=== PATIENT | female | born 1960 | race Caucasian/White ===

== ENCOUNTER 2019-04-06 10:55 | Outpatient (RCR) | payer OTHER, SELFPAY ==
[2019-04-06 11:12] LABS: Basophils Percent Auto 0.2 % (0.2-1.2); Eosinophils Absolute Auto 0.1 K/mm3 (0-0.3); Hematocrit 44.6 % (37.0-47.0); Hemoglobin 14.5 g/dL (12.0-15.0); Immature Granulocyte Absolute 0.01 K/mm3 (0.00-0.031); Immature Granulocyte Percent A 0.2 % (0-0.5); Lymphocytes Absolute Auto 1.73 K/mm3 (0.9-3.2); Lymphocytes Percent Auto 42.2 % (18.3-44.2); Mean Corpuscular HGB Conc 32.5 g/dl (32-36); Mean Corpuscular Hemoglobin 30.7 pg (26-34); Mean Corpuscular Volume 94.5 fl (80-100); Mean Platelet Volume 9.1 fl (7.4-10.4); Monocytes Absolute Auto 0.4 K/mm3 (0.1-0.6); Monocytes Percent Auto 9.5 % (2.6-8.5); Neutrophils Absolute Auto 1.9 K/mm3 (1.3-6.7); Neutrophils Percent Auto 45.9 % (45.5-73.1); Platelet Count Result 246 k/mm3 (150-375); Red Blood Count 4.72 M/mm3 (4.2-5.4); Red Cell Distribution Width 12.7 % (11.5-14.5); White Blood Count 4.1 K/mm3 (4.5-10.0)
[2019-04-06 11:16] LABS: Blood Urea Nitrogen 9 mg/dL (8-26); Carbon Dioxide 29 mmol/L (17-26); Chloride 100 mmol/L (98-109); Estimated Glomerular Filt Rate > 60; Glucose 87 mg/dL (70-105); Potassium 4.6 mmol/L (3.5-4.9); Sodium 142 mmol/L (138-146)
[2019-04-06 12:33] LABS: Alanine Aminotransferase 19 U/L (4-35); Albumin Level 4.5 g/dL (3.5-5.1); Alkaline Phosphatase 101 U/L (38-126); Aspartate Amino Transferase 22 U/L (14-36); Bilirubin,Total 0.3 mg/dL (0.2-1.3); Blood Urea Nitrogen 11 mg/dL (7-17); Calcium 10.4 mg/dL (8.4-10.2); Carbon Dioxide 31 mmol/L (22-30); Chloride 100 mmol/L (98-107); Estimated Glomerular Filt Rate > 60; Glucose 89 mg/dL (65-105); Potassium 4.6 mmol/L (3.4-5.0); Sodium 140 mmol/L (137-145)
== END 2019-07-05 23:59 | disposition home or self-care (01) ==
LOC: ANHLAB 10:55
PROVIDERS: PCP Internal Medicine; Visit Provider Internal Medicine Hematology & Oncology
DX: D05.12 Intraductal carcinoma in situ of left breast (principal)
CPT/HCPCS: 36415; 80048; 80053; 85025

== ENCOUNTER 2019-07-28 09:11 | Outpatient (CLI) | payer OTHER, SELFPAY ==
--- NOTE | ~2019-07-28 | MM_ITS ---
EXAMINATION: MM screening xiao BI w kar HISTORY: Screening mammogram TECHNIQUE: Bilateral rotated lateral CC views. Craniocaudal and mediolateral oblique 3-D tomosynthes is images were obtained and synthetic 2-D images were generated. CAD analysis was submitted and inter preted. COMPARISON: 01/26/2019 diagnostic left digital mammogram 07/21/2018 bilateral digital screening mammogram 10/17/2017 mammographic localization 09/15/2017 left stereotactic biopsy 09/07/2017 diagnostic left digital mammogram 09/03/2017, 08/21/2016, 08/23/2015 bilateral digital screening mammogram examinations BREAST PARENCHYMAL COMPOSITION: There are scattered areas of fibroglandular density. FINDINGS: There are several apparent new microcalcifications in the medial aspect of the mid depth le ft medial breast on CC projection. Diagnostic left mammogram is recommended. Otherwise there is no evidence of suspicious mass, calcification, or architectural distortion to sug gest malignancy in either breast. There has been no other suspicious interval change. IMPRESSION: 1. Possible new microcalcifications in the medial left breast; diagnostic left mammogram is recommend ed. We understand that she 2. Recommend diagnostic left mammogram. BI-RADS Category 0: Incomplete: Needs additional imaging evaluation. Reviewed, dictated and finalized at location A. IMPRESSION: 1. Possible new microcalcifications in the medial left breast; diagnostic left mammogram is recommended. We understand that she 2. Recommend diagnostic left mammogram. BI-RADS Category 0: Incomplete: Needs additional imaging evaluation.
== END 2019-07-28 09:12 | disposition home or self-care (01) ==
PROVIDERS: PCP Internal Medicine; Visit Provider Internal Medicine Hematology & Oncology
DX: Z12.31 Encounter for screening mammogram for malignant neoplasm of breast (principal); R92.8 Other abnormal and inconclusive findings on diagnostic imaging of breast
CPT/HCPCS: 77063; 77067

== ENCOUNTER 2019-08-14 11:04 | Outpatient (CLI) | payer OTHER, SELFPAY ==
--- NOTE | ~2019-08-14 | MM_ITS ---
EXAMINATION: MM diagnostic mammo unilat LT HISTORY: Possible new microcalcifications in the medial left breast reported on 07/28/2019 bilateral d igital screening mammogram TECHNIQUE: Additional 3-D ML tomosynthesis images of left breast were performed and synthetic 2-D suze ges were generated. Magnification CC view of left breast CAD analysis was submitted and interpreted. COMPARISON: 07/28/2019bilateral digital screening mammogram FINDINGS: Minimal benign calcification is noted. No malignant features are identified. IMPRESSION: 1. Benign calcifications 2. Routine mammographic screening is recommended. BI-RADS Category 2: Benign finding(s). Reviewed, dictated and finalized at location A.
== END 2019-08-14 11:05 | disposition home or self-care (01) ==
PROVIDERS: PCP Internal Medicine; Visit Provider Internal Medicine Hematology & Oncology
DX: D05.12 Intraductal carcinoma in situ of left breast (principal)
CPT/HCPCS: 77065

== ENCOUNTER 2019-08-17 09:33 | Outpatient (CLI) | payer OTHER, SELFPAY ==
[2019-08-17 09:52] LABS: Basophils Percent Auto 0.6 % (0.2-1.2); Eosinophils Absolute Auto 0.1 K/mm3 (0-0.3); Eosinophils Percent Auto 1.9 % (0-4.4); Hematocrit 44.8 % (37.0-47.0); Hemoglobin 14.7 g/dL (12.0-15.0); Lymphocytes Absolute Auto 1.38 K/mm3 (0.9-3.2); Lymphocytes Percent Auto 38.3 % (18.3-44.2); Mean Corpuscular HGB Conc 32.8 g/dl (32-36); Mean Corpuscular Hemoglobin 31.3 pg (26-34); Mean Corpuscular Volume 95.5 fl (80-100); Mean Platelet Volume 9.1 fl (7.4-10.4); Monocytes Absolute Auto 0.3 K/mm3 (0.1-0.6); Monocytes Percent Auto 8.9 % (2.6-8.5); Neutrophils Absolute Auto 1.8 K/mm3 (1.3-6.7); Neutrophils Percent Auto 50.3 % (45.5-73.1); Platelet Count Result 245 k/mm3 (150-375); Red Blood Count 4.69 M/mm3 (4.2-5.4); Red Cell Distribution Width 12.9 % (11.5-14.5); White Blood Count 3.6 K/mm3 (4.5-10.0)
[2019-08-17 09:57] LABS: Blood Urea Nitrogen 10 mg/dL (8-26); Carbon Dioxide 23 mmol/L (22-30); Chloride 103 mmol/L (98-109); Estimated Glomerular Filt Rate > 60; Glucose 101 mg/dL (70-105); Potassium 4.3 mmol/L (3.5-4.9); Sodium 140 mmol/L (138-146)
[2019-08-17 10:41] LABS: Alanine Aminotransferase 17 U/L (4-35); Albumin Level 4.4 g/dL (3.5-5.1); Alkaline Phosphatase 105 U/L (38-126); Aspartate Amino Transferase 20 U/L (14-36); Bilirubin,Total 0.6 mg/dL (0.2-1.3); Blood Urea Nitrogen 11 mg/dL (7-17); Calcium 9.8 mg/dL (8.4-10.2); Carbon Dioxide 23 mmol/L (22-30); Chloride 104 mmol/L (98-107); Estimated Glomerular Filt Rate > 60; Glucose 98 mg/dL (65-105); Potassium 4.7 mmol/L (3.4-5.0); Sodium 138 mmol/L (137-145)
== END 2019-08-17 09:34 | disposition home or self-care (01) ==
LOC: ANHLAB 09:34
PROVIDERS: PCP Internal Medicine; Visit Provider Internal Medicine Hematology & Oncology
DX: D05.12 Intraductal carcinoma in situ of left breast (principal)
CPT/HCPCS: 36415; 80048; 80053; 85025

== ENCOUNTER 2020-02-18 10:39 | Outpatient (CLI) | payer OTHER, SELFPAY ==
[2020-02-18 11:19] LABS: Basophils Percent Auto 0.5 % (0.2-1.2); Eosinophils Absolute Auto 0.1 K/mm3 (0-0.3); Eosinophils Percent Auto 1.2 % (0-4.4); Hematocrit 44.7 % (37.0-47.0); Hemoglobin 14.8 g/dL (12.0-15.0); Immature Granulocyte Absolute 0.02 K/mm3 (0.00-0.031); Immature Granulocyte Percent A 0.5 % (0-0.5); Lymphocytes Absolute Auto 1.66 K/mm3 (0.9-3.2); Lymphocytes Percent Auto 39.4 % (18.3-44.2); Mean Corpuscular HGB Conc 33.1 g/dl (32-36); Mean Corpuscular Hemoglobin 30.5 pg (26-34); Mean Corpuscular Volume 92.2 fl (80-100); Mean Platelet Volume 8.6 fl (7.4-10.4); Monocytes Absolute Auto 0.4 K/mm3 (0.1-0.6); Monocytes Percent Auto 9.3 % (2.6-8.5); Neutrophils Absolute Auto 2.1 K/mm3 (1.3-6.7); Neutrophils Percent Auto 49.1 % (45.5-73.1); Platelet Count Result 269 k/mm3 (150-375); Red Blood Count 4.85 M/mm3 (4.2-5.4); Red Cell Distribution Width 13.2 % (11.5-14.5); White Blood Count 4.2 K/mm3 (4.5-10.0)
[2020-02-18 11:24] LABS: Blood Urea Nitrogen 13 mg/dL (8-26); Carbon Dioxide 23 mmol/L (22-30); Chloride 102 mmol/L (98-109); Estimated Glomerular Filt Rate > 60; Glucose 115 mg/dL (70-105); Sodium 140 mmol/L (138-146)
[2020-02-18 13:02] LABS: Alanine Aminotransferase 18 U/L (4-35); Albumin Level 4.3 g/dL (3.5-5.1); Alkaline Phosphatase 106 U/L (38-126); Anion Gap 9 mmol/L (8-16); Aspartate Amino Transferase 20 U/L (14-36); Bilirubin,Total 0.5 mg/dL (0.2-1.3); Blood Urea Nitrogen 14 mg/dL (7-17); Calcium 10.2 mg/dL (8.4-10.2); Carbon Dioxide 27 mmol/L (22-30); Chloride 101 mmol/L (98-107); Estimated Glomerular Filt Rate > 60; Glucose 122 mg/dL (65-105); Potassium 4.3 mmol/L (3.4-5.0); Sodium 137 mmol/L (137-145)
== END 2020-02-18 10:40 | disposition home or self-care (01) ==
PROVIDERS: PCP Internal Medicine; Visit Provider Internal Medicine Hematology & Oncology
DX: D05.12 Intraductal carcinoma in situ of left breast (principal)
CPT/HCPCS: 36415; 80048; 80053; 85025

== ENCOUNTER 2020-08-11 08:14 | Outpatient (CLI) | payer OTHER, SELFPAY ==
--- NOTE | ~2020-08-11 | MM_ITS ---
EXAMINATION: MM screening xiao BI w kar HISTORY: Screening mammogram TECHNIQUE: Craniocaudal and mediolateral oblique 3-D tomosynthesis images were obtained and synthetic 2-D images were generated. CAD analysis was submitted and interpreted. COMPARISON: 08/14/2019 diagnostic left digital mammogram 07/28/2019 bilateral digital screening mammogram 01/26/2019 diagnostic left digital mammogram 07/21/2018 bilateral diagnostic digital mammogram BREAST PARENCHYMAL COMPOSITION: There are scattered areas of fibroglandular density. FINDINGS: Surgical clips and biopsy marker are noted on the left. History of prior left partial maste ctomy for breast cancer in 2018. There is no evidence of suspicious mass, calcification, or cloud architect ural distortion to suggest malignancy in either breast. There has been no suspicious interval change. IMPRESSION: 1. No mammographic evidence of malignancy. 2. Recommend routine screening mammography in one year. BI-RADS Category 2: Benign finding(s). Reviewed, dictated and finalized at location A.
== END 2020-08-11 08:15 | disposition home or self-care (01) ==
LOC: ANHIMG 08:17
PROVIDERS: PCP Internal Medicine; Visit Provider Internal Medicine Hematology & Oncology
DX: Z12.31 Encounter for screening mammogram for malignant neoplasm of breast (principal)
CPT/HCPCS: 77063; 77067

== ENCOUNTER 2020-08-14 12:37 | Outpatient (CLI) | payer OTHER, SELFPAY ==
[2020-08-14 13:11] LABS: Basophils Percent Auto 0.4 % (0.2-1.2); Eosinophils Absolute Auto 0.1 K/mm3 (0-0.3); Eosinophils Percent Auto 1.8 % (0-4.4); Hematocrit 44.5 % (37.0-47.0); Hemoglobin 14.5 g/dL (12.0-15.0); Immature Granulocyte Absolute 0.01 K/mm3 (0.00-0.031); Immature Granulocyte Percent A 0.2 % (0-0.5); Lymphocytes Percent Auto 39.1 % (18.3-44.2); Mean Corpuscular HGB Conc 32.6 g/dl (32-36); Mean Corpuscular Hemoglobin 30.5 pg (26-34); Mean Corpuscular Volume 93.5 fl (80-100); Mean Platelet Volume 8.9 fl (7.4-10.4); Monocytes Absolute Auto 0.5 K/mm3 (0.1-0.6); Monocytes Percent Auto 8.8 % (2.6-8.5); Neutrophils Absolute Auto 2.5 K/mm3 (1.3-6.7); Neutrophils Percent Auto 49.7 % (45.5-73.1); Platelet Count Result 230 k/mm3 (150-375); Red Blood Count 4.76 M/mm3 (4.2-5.4); Red Cell Distribution Width 13.1 % (11.5-14.5); White Blood Count 5.1 K/mm3 (4.5-10.0)
[2020-08-14 13:15] LABS: Blood Urea Nitrogen 14 mg/dL (8-26); Carbon Dioxide 29 mmol/L (22-30); Chloride 101 mmol/L (98-109); Estimated Glomerular Filt Rate > 60; Glucose 87 mg/dL (70-105); Potassium 4.5 mmol/L (3.5-4.9); Sodium 138 mmol/L (138-146)
[2020-08-14 14:42] LABS: Alanine Aminotransferase 20 U/L (4-35); Albumin Level 4.6 g/dL (3.5-5.1); Alkaline Phosphatase 121 U/L (38-126); Anion Gap 9 mmol/L (8-16); Aspartate Amino Transferase 26 U/L (14-36); Bilirubin,Total 0.4 mg/dL (0.2-1.3); Blood Urea Nitrogen 15 mg/dL (7-17); Calcium 9.7 mg/dL (8.4-10.2); Carbon Dioxide 28 mmol/L (22-30); Chloride 102 mmol/L (98-107); Estimated Glomerular Filt Rate > 60; Glucose 91 mg/dL (65-105); Sodium 139 mmol/L (137-145)
[2020-08-14 14:56] LABS: Potassium 4.5 mmol/L (3.4-5.0)
== END 2020-08-14 12:38 | disposition home or self-care (01) ==
PROVIDERS: PCP Internal Medicine; Visit Provider Internal Medicine Hematology & Oncology
DX: D05.12 Intraductal carcinoma in situ of left breast (principal)
CPT/HCPCS: 36415; 80048; 80053; 85025

== ENCOUNTER 2020-08-18 08:17 | Outpatient (CLI) | payer OTHER, SELFPAY | END 2020-08-18 08:18 | disposition home or self-care (01) | LOC: ANHCOVIDVC 08:17 | PROVIDERS: PCP Internal Medicine | DX: Z23 Encounter for immunization (principal) | CPT/HCPCS: 0001A; 91300 ==

== ENCOUNTER 2020-09-08 08:16 | Outpatient (CLI) | payer OTHER, SELFPAY | END 2020-09-08 08:17 | disposition home or self-care (01) | LOC: ANHCOVIDVC 08:16 | PROVIDERS: PCP Internal Medicine | DX: Z23 Encounter for immunization (principal) | CPT/HCPCS: 0002A; 91300 ==

== ENCOUNTER → 2021-01-03 07:47 | Outpatient (CLI) | payer OTHER, SELFPAY ==
[2021-01-03 22:46] LABS: SARS-CoV-2 RNA PCR Negative
== END ==
PROVIDERS: PCP Internal Medicine; Visit Provider Internal Medicine
DX: Z20.822 Contact with and (suspected) exposure to COVID-19 (principal)
CPT/HCPCS: C9803; U0003; U0005

== ENCOUNTER 2021-02-20 09:18 | Outpatient (CLI) | payer OTHER, SELFPAY ==
[2021-02-20 09:36] LABS: Basophils Percent Auto 0.7 % (0.2-1.2); Eosinophils Absolute Auto 0.1 K/mm3 (0-0.3); Eosinophils Percent Auto 1.6 % (0-4.4); Hematocrit 45.3 % (37.0-47.0); Hemoglobin 14.6 g/dL (12.0-15.0); Immature Granulocyte Absolute 0.01 K/mm3 (0.00-0.031); Immature Granulocyte Percent A 0.2 % (0-0.5); Lymphocytes Absolute Auto 1.58 K/mm3 (0.9-3.2); Lymphocytes Percent Auto 37.2 % (18.3-44.2); Mean Corpuscular HGB Conc 32.2 g/dl (32-36); Mean Corpuscular Hemoglobin 30.9 pg (26-34); Mean Corpuscular Volume 95.8 fl (80-100); Mean Platelet Volume 8.9 fl (7.4-10.4); Monocytes Absolute Auto 0.4 K/mm3 (0.1-0.6); Monocytes Percent Auto 10.1 % (2.6-8.5); Neutrophils Absolute Auto 2.1 K/mm3 (1.3-6.7); Neutrophils Percent Auto 50.2 % (45.5-73.1); Platelet Count Result 274 k/mm3 (150-375); Red Blood Count 4.73 M/mm3 (4.2-5.4); Red Cell Distribution Width 12.8 % (11.5-14.5); White Blood Count 4.3 K/mm3 (4.5-10.0)
[2021-02-20 09:40] LABS: Blood Urea Nitrogen 14 mg/dL (8-26); Carbon Dioxide 28 mmol/L (22-30); Chloride 99 mmol/L (98-109); Estimated Glomerular Filt Rate > 60; Glucose 98 mg/dL (70-105); Potassium 4.3 mmol/L (3.5-4.9); Sodium 142 mmol/L (138-146)
[2021-02-20 12:49] LABS: D Dimer 0.44 ug/mL (<0.48)
[2021-02-20 13:04] LABS: Alanine Aminotransferase 24 U/L (4-35); Albumin Level 4.8 g/dL (3.5-5.1); Alkaline Phosphatase 113 U/L (38-126); Anion Gap 10 mmol/L (8-16); Aspartate Amino Transferase 44 U/L (14-36); Bilirubin,Total 0.5 mg/dL (0.2-1.3); Blood Urea Nitrogen 15 mg/dL (7-17); Calcium 10.2 mg/dL (8.4-10.2); Carbon Dioxide 29 mmol/L (22-30); Chloride 102 mmol/L (98-107); Estimated Glomerular Filt Rate > 60; Glucose 96 mg/dL (65-110); Potassium 4.5 mmol/L (3.4-5.0); Sodium 141 mmol/L (137-145)
== END 2021-02-20 09:19 | disposition home or self-care (01) ==
PROVIDERS: PCP Internal Medicine; Visit Provider Internal Medicine Hematology & Oncology
DX: D05.12 Intraductal carcinoma in situ of left breast (principal)
CPT/HCPCS: 36415; 80048; 80053; 85025; 85380

== ENCOUNTER 2021-08-22 07:13 | Outpatient (CLI) | payer OTHER, SELFPAY ==
--- NOTE | ~2021-08-22 | MM_ITS ---
EXAMINATION: MM screening xiao BI w kar HISTORY: Screening mammogram TECHNIQUE: Craniocaudal and mediolateral oblique 3-D tomosynthesis images were obtained and synthetic 2-D images were generated. CAD analysis was submitted and interpreted. COMPARISON: No prior mammogram is available for comparison at this institution. BREAST PARENCHYMAL COMPOSITION: There are scattered areas of fibroglandular density. FINDINGS: History of left partial mastectomy and radiotherapy for breast cancer. Surgical clips and s ome adjacent calcification of fat necrosis is noted very posteriorly in the inner aspect of the inner mid left breast. There is a biopsy marker on the left. There is no evidence of suspicious mass, calcification, or architectural distortion to suggest malign rafita in either breast. There has been no suspicious interval change. IMPRESSION: 1. Status post left partial mastectomy for breast cancer. No mammographic evidence of malignancy. 2. Recommend routine screening mammography in one year. BI-RADS Category 2: Benign finding(s). Reviewed, dictated and finalized at location A. IMPRESSION: 1. Status post left partial mastectomy for breast cancer. No mammographic evide nce of malignancy. 2. Recommend routine screening mammography in one year. BI-RADS Category 2: Benign finding(s).
== END 2021-08-22 07:14 | disposition home or self-care (01) ==
LOC: ANHIMG 07:14
PROVIDERS: PCP Internal Medicine; Visit Provider Internal Medicine Hematology & Oncology
DX: Z12.31 Encounter for screening mammogram for malignant neoplasm of breast (principal)
CPT/HCPCS: 77063; 77067

== ENCOUNTER 2021-08-28 08:42 | Outpatient (CLI) | payer OTHER, SELFPAY ==
[2021-08-28 08:55] LABS: Basophils Percent Auto 0.5 % (0.2-1.2); Eosinophils Absolute Auto 0.1 K/mm3 (0-0.3); Eosinophils Percent Auto 1.2 % (0-4.4); Hematocrit 46.3 % (37.0-47.0); Hemoglobin 14.4 g/dL (12.0-15.0); Immature Granulocyte Absolute 0.01 K/mm3 (0.00-0.031); Immature Granulocyte Percent A 0.2 % (0-0.5); Lymphocytes Absolute Auto 1.82 K/mm3 (0.9-3.2); Lymphocytes Percent Auto 44.8 % (18.3-44.2); Mean Corpuscular HGB Conc 31.1 g/dl (32-36); Mean Corpuscular Hemoglobin 31.2 pg (26-34); Mean Corpuscular Volume 100.2 fl (80-100); Mean Platelet Volume 9.1 fl (7.4-10.4); Monocytes Absolute Auto 0.4 K/mm3 (0.1-0.6); Monocytes Percent Auto 8.9 % (2.6-8.5); Neutrophils Absolute Auto 1.8 K/mm3 (1.3-6.7); Neutrophils Percent Auto 44.4 % (45.5-73.1); Platelet Count Result 231 k/mm3 (150-375); Red Blood Count 4.62 M/mm3 (4.2-5.4); White Blood Count 4.1 K/mm3 (4.5-10.0)
[2021-08-28 09:00] LABS: Blood Urea Nitrogen 14 mg/dL (8-26); Carbon Dioxide 28 mmol/L (22-30); Chloride 103 mmol/L (98-109); Estimated Glomerular Filt Rate > 60; Glucose 93 mg/dL (70-105); Ionized Calcium (POC) 1.25 mmol/L (1.11-1.31); Potassium 4.1 mmol/L (3.5-4.9); Sodium 142 mmol/L (138-146)
[2021-08-28 10:13] LABS: Alanine Aminotransferase 19 U/L (4-35); Albumin Level 4.3 g/dL (3.5-5.1); Alkaline Phosphatase 109 U/L (38-126); Anion Gap 9 mmol/L (8-16); Aspartate Amino Transferase 24 U/L (14-36); Bilirubin,Total 0.3 mg/dL (0.2-1.3); Blood Urea Nitrogen 13 mg/dL (7-17); Calcium 9.1 mg/dL (8.4-10.2); Carbon Dioxide 28 mmol/L (22-30); Chloride 103 mmol/L (98-107); Estimated Glomerular Filt Rate > 60; Glucose 91 mg/dL (65-110); Sodium 140 mmol/L (137-145)
[2021-08-28 10:15] LABS: D Dimer < 0.27 ug/mL (<0.48)
== END 2021-08-28 08:43 | disposition home or self-care (01) ==
LOC: ANHLAB 08:43
PROVIDERS: PCP Internal Medicine; Visit Provider Internal Medicine Hematology & Oncology
DX: R06.00 Dyspnea, unspecified (principal); D05.12 Intraductal carcinoma in situ of left breast
CPT/HCPCS: 36415; 80047; 80053; 85025; 85380

== ENCOUNTER 2021-11-11 02:07 | Day surgery (SDC) | payer OTHER, SELFPAY ==
[2021-10-26 14:43] VITALS: BMI 27.9
--- NOTE | 2021-11-10 14:49 | PM.HPGS ---
History of Present Illness History of Present Illness Consent: Risks, benefits, and alternatives have been discussed and questions answered. Patient agrees to proceed with procedure. Chief complaint: hx of colon polyps Narrative: Debra Vora is a 61 year old female who is referred for colon cancer screening. She has a history of polyps. Her last colonoscopy in 2017 was negative for polyps. Review of Systems Review of Systems: All systems reviewed & are unremarkable except as noted in HPI and below PMFSH Past Medical History Medical History Depression Screening for colon cancer Screening for osteoporosis Surgical History Surgical History History of section History of dilation and curettage History of endometrial ablation History of partial mastectomy Family History Family History Mother Family history of malignant neoplasm of ovary Father Family history of coronary artery disease Sibling Family history of coronary artery disease Family history of congestive heart failure Patient's sister is Family history of hypercholesterolemia Hypertension Grandparent Diabetes mellitus Cerebrovascular accident Other Family history of lung cancer Social History Social History Smoking status: Never smoker Second hand tobacco smoke exposure: No Alcohol intake: current Alcohol use details: socially Substance use: never Substance use type: does not use Living arrangements: alone Spiritual care concerns: No Meds Home Medications and Allergies Home Medications Medication Instructions Recorded Confirmed Type aspirin 81 mg tablet,delayed 81 mg PO DAILY 07/04/19 11/11/21 History release (Adult Aspirin Regimen) anastrozole 1 mg tablet See Rx Instructions .Route 09/29/20 11/11/21 Rx .COMPLEX #90 tabs alprazolam 0.25 mg tablet (Xanax) 0.25 mg PO DAILY PRN anxiety #30 05/27/21 11/11/21 Rx tabs divalproex 500 mg tablet,extended See Rx Instructions .Route 08/19/21 11/11/21 Rx release 24 hr .COMPLEX #90 tabs sumatriptan succinate 100 mg tablet See Rx Instructions .Route 08/19/21 11/11/21 Rx .COMPLEX #9 tabs atorvastatin 20 mg tablet See Rx Instructions .Route 09/28/21 11/11/21 Rx .COMPLEX #90 tabs imipramine HCl 50 mg tablet See Rx Instructions .Route 09/28/21 11/11/21 Rx .COMPLEX #30 tabs Allergies Allergy/AdvReac Type Severity Reaction Status Date / Time prochlorperazine Allergy Severe Lock Jaw Verified 11/11/21 08:20 Benzodiazepines Allergy Unknown rash Verified 11/11/21 08:20 lidocaine Allergy Unknown rash Verified 11/11/21 08:20 meperidine Allergy Unknown Rash Verified 11/11/21 08:20 vancomycin Allergy Unknown Rash Verified 11/11/21 08:20 Exam Resp: Auscultation: clear to auscultation bilaterally Cardio: Rate: regular rate Rhythm: regular rhythm GI: GI Palp: Yes Soft to palpation and No Tenderness to palpation present (GI) Assessment and Plan Assessment and plan (1) Screening for colon cancer: Code(s): Z12.11 - Encounter for screening for malignant neoplasm of colon Status: Acute Assessment and Plan: Colonoscopy with possible biopsy or polypectomy or cautery or injection of substances.
[2021-11-11 08:22] VITALS: BP 145/85; PULSE 103; RESP 20; TEMP 36.3; O2SAT 97
[2021-11-11] MEDS: LACTATED RINGERS 1,000 ML 150 ML IV CONT (08:29)
--- NOTE | 2021-11-11 09:04 | WPDANESEPPF ---
Anes - Initial Pre Proc Eval Procedure: Operation Date: 11/11/21 09:45 Proposed Procedures p Screening Colonoscopy - Sonido Arellano MD Date/Time: 11/11/21 09:04 Surgeon: Sonido Arellano MD Pre Op Diagnosis: hx of colon polyps Patient Data Age: 61 Gender: F Height: 1.7 m Weight: 78.9 kg Last Vital Signs Temp 36.3 C L 11/11/21 08:22 Pulse 103 H 11/11/21 08:22 Resp 20 11/11/21 08:22 BP 145/85 H 11/11/21 08:22 Pulse Ox 97 11/11/21 08:22 O2 Del Method Room Air 11/11/21 08:22 Allergies Allergy/AdvReac Type Severity Reaction Status Date / Time prochlorperazine Allergy Severe Lock Jaw Verified 11/11/21 08:20 Benzodiazepines Allergy Unknown rash Verified 11/11/21 08:20 lidocaine Allergy Unknown rash Verified 11/11/21 08:20 meperidine Allergy Unknown Rash Verified 11/11/21 08:20 vancomycin Allergy Unknown Rash Verified 11/11/21 08:20 Home Medications Medication Instructions Recorded Confirmed Type aspirin 81 mg tablet,delayed 81 mg PO DAILY 07/04/19 11/11/21 History release (Adult Aspirin Regimen) anastrozole 1 mg tablet See Rx Instructions .Route 09/29/20 11/11/21 Rx .COMPLEX #90 tabs alprazolam 0.25 mg tablet (Xanax) 0.25 mg PO DAILY PRN anxiety #30 05/27/21 11/11/21 Rx tabs divalproex 500 mg tablet,extended See Rx Instructions .Route 08/19/21 11/11/21 Rx release 24 hr .COMPLEX #90 tabs sumatriptan succinate 100 mg tablet See Rx Instructions .Route 08/19/21 11/11/21 Rx .COMPLEX #9 tabs atorvastatin 20 mg tablet See Rx Instructions .Route 09/28/21 11/11/21 Rx .COMPLEX #90 tabs imipramine HCl 50 mg tablet See Rx Instructions .Route 09/28/21 11/11/21 Rx .COMPLEX #30 tabs Patient hx anesthesia problems: post op nausea/vomiting Family hx anesthesia problems: none Results Review: All pre-operative results and documents have been reviewed as part of the pre-operative evaluation. [facility] Past Medical History Medical History Depression Pure hypercholesterolemia Screening for colon cancer Screening for osteoporosis Surgical History Surgical History History of section History of dilation and curettage History of endometrial ablation History of partial mastectomy Family History Family History Mother Family history of malignant neoplasm of ovary Father Family history of coronary artery disease Sibling Family history of coronary artery disease Family history of congestive heart failure Patient's sister is Family history of hypercholesterolemia Hypertension Grandparent Diabetes mellitus Cerebrovascular accident Other Family history of lung cancer Social History Social History Smoking status: Never smoker Second hand tobacco smoke exposure: No Alcohol intake: current Alcohol use details: socially Substance use: never Substance use type: does not use Living arrangements: alone Spiritual care concerns: No Anes - Eval Final PreProcedure Day of Procedure 11/11/21 09:04 Patient weight: overweight Heart: regular rate and rhythm Lungs: clear to auscultation Airway: Mallampati scale class II Neurological: alert and oriented Last oral intake: >/= 8 hours ASA classification: II Emergent: no Anesthetic plan: proceed Anesthesia type and monitoring: general GIVS and standard monitoring Results Review: All pre-operative results and documents have been reviewed as part of the pre-operative evaluation. Informed Consent: The patient's anesthetic plan and its attendant risks and benefits were discussed with the patient/family/POA. Questions were solicited and answers provided to the satisfaction of the patient/family/POA.
[2021-11-11 09:59] VITALS: BP 119/70; PULSE 90; RESP 20; O2SAT 98
[2021-11-11 10:09] VITALS: BP 122/73; PULSE 85; RESP 18; O2SAT 100
[2021-11-11 10:19] VITALS: BP 124/53; PULSE 87; RESP 20; O2SAT 100
== END 2021-11-11 10:30 | disposition home or self-care (01) ==
PROVIDERS: PCP Internal Medicine; Visit Provider Internal Medicine Gastroenterology
PROC: 0DJD8ZZ Inspection of Lower Intestinal Tract, Via Natural or Artificial Opening Endoscopic (ICD-10-PCS; CPT 45378; principal; 2021-11-11 09:45)
DX: Z12.11 Encounter for screening for malignant neoplasm of colon (principal); K63.5 Polyp of colon; Z79.82 Long term (current) use of aspirin; F32.A Depression, unspecified; E78.00 Pure hypercholesterolemia, unspecified
CPT/HCPCS: 45385; 88305; J2704; J7120

== ENCOUNTER 2022-01-23 08:54 | Outpatient (CLI) | payer OTHER, SELFPAY ==
--- NOTE | ~2022-01-23 | DEXA_ITS ---
Bone Density Report Name: MICHELLE MORRISON Age: 61 Sex: Female Ethnicity: White Date of : 1960 Indication: postmenopausal; screening for osteoporosis; cancer; Referring Provider: LYNDA MILLER Study: Bone densitometry was performed. Exam Date: January 23, 2022 Accession number: [id number] Bone Density: Region BMD T-score Z-score Classification AP Spine(L1-L4) 1.083 0.3 2.0 Normal Femoral Neck (Left) 0.877 0.3 1.7 Normal Total Hip (Left) 0.982 0.3 1.5 Normal Femoral Neck (Right) 0.981 1.2 2.6 Normal Total Hip (Right) 0.986 0.4 1.5 Normal Total Hip Mean 0.984 0.4 1.5 Normal World Health Organization criteria for BMD impression classify patients as: Normal (T-score at or above -1.0), Osteopenia (T-score between -1.0 and -2.5), or Osteoporosis (T-score at or below -2.5). 10-year Fracture Risk: FRAX not reported because: All T-scores for Spine Total, Hip Total, Femoral Neck at or above -1.0 Previous Exams: Region Exam Age BMD T-score BMD Change BMD Change Date g/cm2 vs Baseline vs Previous AP Spine (L1-L4) 01/23/2022 61 1.083 0.3 -0.110 (-9.2%) -0.110 (-9.2%) 08/12/2012 52 1.193 1.3 Total Hip(Left) 01/23/2022 61 0.982 0.3 -0.037 (-3.6%) -0.052 (-5.0%) 03/24/2019 58 1.034 0.8 0.015 (1.5%) 0.034 (3.4%)# 08/23/2015 55 1.000 0.5 -0.019 (-1.9%) -0.019 (-1.9%) 08/12/2012 52 1.019 0.6 Total Hip(Right) 01/23/2022 61 0.986 0.4 -0.051 (-5.0%) -0.069 (-6.6%) 03/24/2019 58 1.056 0.9 0.018 (1.7%) 0.049 (4.9%)# 08/23/2015 55 1.006 0.5 -0.031 (-3.0%) -0.031 (-3.0%) 08/12/2012 52 1.038 0.8 *Denotes significance at 95% confidence level, LSC for AP Spine = 0.022 g/cm2, LSC for Total Hip = 0.027 g/cm2 # Denotes dissimilar scan types or analysis methods Clinical Information Provided by Patient: Has the following medical conditions: Cancer Patient maximum height was 67 Menopause Age: 51 Drinks caffeinated beverages Onset of menses at age 11 Number of children 1 Impression: The patient has normal bone mass. No significant bone loss was observed. Discussion: BONE DENSITY IS ABOVE THE MINIMUM DESIRABLE LEVEL AT ALL SKELETAL SITES TESTED. This patient?s bone mineral density is above the minimum desirable level (T-score -1.0 or better) at all sites measured. The patient should follow a healthful lifestyle (good nutrition with adequate calcium and vitamin D, and appro
== END 2022-01-23 08:55 | disposition home or self-care (01) ==
PROVIDERS: PCP Internal Medicine; Visit Provider Internal Medicine
DX: Z13.820 Encounter for screening for osteoporosis (principal)
CPT/HCPCS: 77080

== ENCOUNTER 2022-02-19 10:31 | Outpatient (CLI) | payer OTHER, SELFPAY ==
[2022-02-19 10:47] LABS: Basophils Percent Auto 0.7 % (0.2-1.2); Eosinophils Absolute Auto 0.1 K/mm3 (0-0.3); Eosinophils Percent Auto 1.9 % (0-4.4); Hematocrit 44.1 % (37.0-47.0); Hemoglobin 14.7 g/dL (12.0-15.0); Immature Granulocyte Absolute 0.01 K/mm3 (0.00-0.031); Immature Granulocyte Percent A 0.2 % (0-0.5); Lymphocytes Absolute Auto 1.75 K/mm3 (0.9-3.2); Lymphocytes Percent Auto 40.6 % (18.3-44.2); Mean Corpuscular HGB Conc 33.3 g/dl (32-36); Mean Corpuscular Hemoglobin 31.6 pg (26-34); Mean Corpuscular Volume 94.8 fl (80-100); Mean Platelet Volume 8.9 fl (7.4-10.4); Monocytes Absolute Auto 0.4 K/mm3 (0.1-0.6); Monocytes Percent Auto 8.6 % (2.6-8.5); Neutrophils Absolute Auto 2.1 K/mm3 (1.3-6.7); Platelet Count Result 260 k/mm3 (150-375); Red Blood Count 4.65 M/mm3 (4.2-5.4); White Blood Count 4.3 K/mm3 (4.5-10.0)
[2022-02-19 10:50] LABS: Blood Urea Nitrogen 9 mg/dL (8-26); Carbon Dioxide 29 mmol/L (22-30); Chloride 104 mmol/L (98-109); Estimated Glomerular Filt Rate > 60; Glucose 103 mg/dL (70-105); Ionized Calcium (POC) 1.32 mmol/L (1.11-1.31); Potassium 4.9 mmol/L (3.5-4.9); Sodium 143 mmol/L (138-146)
[2022-02-19 14:16] LABS: Alanine Aminotransferase 23 U/L (6-35); Albumin Level 4.5 g/dL (3.5-5.1); Alkaline Phosphatase 107 U/L (38-126); Anion Gap 10 mmol/L (8-16); Aspartate Amino Transferase 25 U/L (14-36); Bilirubin,Total 0.4 mg/dL (0.2-1.3); Blood Urea Nitrogen 10 mg/dL (7-17); Carbon Dioxide 28 mmol/L (22-30); Chloride 105 mmol/L (98-107); Estimated Glomerular Filt Rate > 60; Glucose 100 mg/dL (65-110); Potassium 4.9 mmol/L (3.4-5.0); Sodium 143 mmol/L (137-145)
== END 2022-02-19 10:32 | disposition home or self-care (01) ==
PROVIDERS: PCP Internal Medicine; Visit Provider Internal Medicine Hematology & Oncology
DX: D05.12 Intraductal carcinoma in situ of left breast (principal)
CPT/HCPCS: 36415; 80047; 80053; 85025

== ENCOUNTER 2022-09-04 09:31 | Outpatient (CLI) | payer OTHER, SELFPAY ==
--- NOTE | ~2022-09-04 | MM_ITS ---
EXAMINATION: MM screening xiao BI w kar HISTORY: Screening mammogram, history of left breast cancer TECHNIQUE: Craniocaudal and mediolateral oblique 3-D tomosynthesis images were obtained and synthetic 2-D images were generated. CAD analysis was submitted and interpreted. COMPARISON: 08/22/2021, 08/11/2020, 08/14/2019 BREAST PARENCHYMAL COMPOSITION: The breasts are heterogeneously dense, which may obscure small masses . FINDINGS: Lumpectomy changes are noted in the left breast. No suspicious mass, calcification, or arch itectural distortion are identified in either breast to suggest malignancy. There has been no suspici ous interval change. IMPRESSION: 1. No mammographic evidence of malignancy. 2. Recommend routine screening mammography in one year. BI-RADS Category 2: Benign finding(s). Reviewed, dictated and finalized at location A.
== END 2022-09-04 09:32 | disposition home or self-care (01) ==
LOC: ANHIMG 09:32
PROVIDERS: PCP Family Medicine; Visit Provider Internal Medicine Hematology & Oncology
DX: Z12.31 Encounter for screening mammogram for malignant neoplasm of breast (principal)
CPT/HCPCS: 77063; 77067

== ENCOUNTER 2022-09-10 10:32 | Outpatient (CLI) | payer OTHER, SELFPAY ==
[2022-09-10 10:42] LABS: Basophils Percent Auto 0.4 % (0.2-1.2); Eosinophils Absolute Auto 0.1 K/mm3 (0-0.3); Eosinophils Percent Auto 1.6 % (0-4.4); Hematocrit 45.2 % (37.0-47.0); Immature Granulocyte Absolute 0.01 K/mm3 (0.00-0.031); Immature Granulocyte Percent A 0.1 % (0-0.5); Lymphocytes Absolute Auto 1.54 K/mm3 (0.9-3.2); Mean Corpuscular HGB Conc 33.2 g/dl (32-36); Mean Corpuscular Hemoglobin 31.6 pg (26-34); Mean Corpuscular Volume 95.4 fl (80-100); Mean Platelet Volume 8.9 fl (7.4-10.4); Monocytes Absolute Auto 0.6 K/mm3 (0.1-0.6); Monocytes Percent Auto 9.6 % (2.6-8.5); Neutrophils Absolute Auto 4.4 K/mm3 (1.3-6.7); Neutrophils Percent Auto 65.3 % (45.5-73.1); Platelet Count Result 258 k/mm3 (150-375); Red Blood Count 4.74 M/mm3 (4.2-5.4); Red Cell Distribution Width 13.2 % (11.5-14.5); White Blood Count 6.7 K/mm3 (4.5-10.0)
[2022-09-10 10:48] LABS: Blood Urea Nitrogen 10 mg/dL (8-26); Carbon Dioxide 27 mmol/L (22-30); Chloride 102 mmol/L (98-109); Estimated Glomerular Filt Rate > 60; Glucose 101 mg/dL (70-105); Ionized Calcium (POC) 1.17 mmol/L (1.11-1.31); Potassium 4.4 mmol/L (3.5-4.9); Sodium 139 mmol/L (138-146)
[2022-09-10 12:39] LABS: Alanine Aminotransferase 27 U/L (6-35); Albumin Level 4.7 g/dL (3.5-5.1); Alkaline Phosphatase 112 U/L (38-126); Anion Gap 6 mmol/L (8-16); Aspartate Amino Transferase 30 U/L (14-36); Bilirubin,Total 0.6 mg/dL (0.2-1.3); Blood Urea Nitrogen 11 mg/dL (7-17); Carbon Dioxide 30 mmol/L (22-30); Chloride 102 mmol/L (98-107); Estimated Glomerular Filt Rate > 60; Glucose 100 mg/dL (65-110); Potassium 4.4 mmol/L (3.4-5.0); Sodium 138 mmol/L (137-145)
== END 2022-09-10 10:33 | disposition home or self-care (01) ==
LOC: ANHLAB 10:34
PROVIDERS: PCP Family Medicine; Visit Provider Internal Medicine Hematology & Oncology
DX: D05.12 Intraductal carcinoma in situ of left breast (principal)
CPT/HCPCS: 36415; 80047; 80053; 85025

== ENCOUNTER 2023-05-13 10:07 | Outpatient (CLI) | payer OTHER, MEDICARE, SELFPAY ==
[2023-05-13 10:28] LABS: Basophils Percent Auto 0.6 % (0.2-1.2); Eosinophils Absolute Auto 0.1 K/mm3 (0-0.3); Eosinophils Percent Auto 1.5 % (0-4.4); Hematocrit 44.9 % (37.0-47.0); Hemoglobin 14.8 g/dL (12.0-15.0); Immature Granulocyte Absolute 0.01 K/mm3 (0.00-0.031); Immature Granulocyte Percent A 0.2 % (0-0.5); Lymphocytes Absolute Auto 2.02 K/mm3 (0.9-3.2); Lymphocytes Percent Auto 41.9 % (18.3-44.2); Mean Corpuscular Hemoglobin 31.4 pg (26-34); Mean Corpuscular Volume 95.3 fl (80-100); Mean Platelet Volume 9.2 fl (7.4-10.4); Monocytes Absolute Auto 0.5 K/mm3 (0.1-0.6); Monocytes Percent Auto 10.4 % (2.6-8.5); Neutrophils Absolute Auto 2.2 K/mm3 (1.3-6.7); Neutrophils Percent Auto 45.4 % (45.5-73.1); Platelet Count Result 247 k/mm3 (150-375); Red Blood Count 4.71 M/mm3 (4.2-5.4); White Blood Count 4.8 K/mm3 (4.5-10.0)
[2023-05-13 10:34] LABS: Blood Urea Nitrogen 14 mg/dL (8-26); Carbon Dioxide 27 mmol/L (22-30); Chloride 102 mmol/L (98-109); Estimated Glomerular Filt Rate > 60; Glucose 96 mg/dL (70-105); Ionized Calcium (POC) 1.24 mmol/L (1.11-1.31); Potassium 4.4 mmol/L (3.5-4.9); Sodium 141 mmol/L (138-146)
[2023-05-13 16:32] LABS: Alanine Aminotransferase 20 U/L (6-35); Albumin Level 4.2 g/dL (3.5-5.1); Alkaline Phosphatase 108 U/L (38-126); Anion Gap 9 mmol/L (8-16); Aspartate Amino Transferase 25 U/L (14-36); Bilirubin,Total 0.5 mg/dL (0.2-1.3); Blood Urea Nitrogen 14 mg/dL (7-17); Calcium 9.5 mg/dL (8.4-10.2); Carbon Dioxide 27 mmol/L (22-30); Chloride 104 mmol/L (98-107); Estimated Glomerular Filt Rate > 60; Glucose 97 mg/dL (65-110); Potassium 4.7 mmol/L (3.4-5.0); Sodium 140 mmol/L (137-145)
== END 2023-05-13 10:08 | disposition home or self-care (01) ==
LOC: ANHLAB 10:14
PROVIDERS: PCP Family Medicine; Visit Provider Internal Medicine Hematology & Oncology
DX: D05.12 Intraductal carcinoma in situ of left breast (principal)
CPT/HCPCS: 36415; 80047; 80053; 85025

== ENCOUNTER 2023-09-10 07:14 | Outpatient (CLI) | payer MEDICARE, SELFPAY ==
--- NOTE | ~2023-09-10 | MM_ITS ---
EXAMINATION: MM screening xiao BI w kar HISTORY: Screening mammogram TECHNIQUE: Craniocaudal and mediolateral oblique 3-D tomosynthesis images were obtained and synthetic 2-D images were generated. CAD analysis was submitted and interpreted. COMPARISON: September 04, 2022, August 22, 2021 bilateral screening mammogram examinations BREAST PARENCHYMAL COMPOSITION: The breasts are heterogeneously dense, which may obscure small masses . FINDINGS: Surgical clips and a biopsy marker occasional bilateral benign calcifications are again not ed. Are noted on the left; history of prior left partial mastectomy for breast cancer. There is no ev idence of suspicious mass, calcification, or architectural distortion to suggest malignancy in either breast. There has been no suspicious interval change. IMPRESSION: 1. Status post left partial mastectomy for breast cancer. No mammographic evidence of malignancy. 2. Recommend routine screening mammography in one year. BI-RADS Category 2: Benign finding(s). Reviewed, dictated and finalized at location A. IMPRESSION: 1. Status post left partial mastectomy for breast cancer. No mammographic evide nce of malignancy. 2. Recommend routine screening mammography in one year. BI-RADS Category 2: Benign finding(s).
== END 2023-09-10 07:15 | disposition home or self-care (01) ==
LOC: ANHIMG 07:16
PROVIDERS: PCP Family Medicine; Visit Provider Internal Medicine Hematology & Oncology
DX: Z12.31 Encounter for screening mammogram for malignant neoplasm of breast (principal)
CPT/HCPCS: 77063; 77067

== ENCOUNTER 2024-01-20 08:05 | Outpatient (CLI) | payer MEDICARE, SELFPAY ==
[2024-01-20 08:19] LABS: Basophils Percent Auto 0.6 % (0.2-1.2); Eosinophils Absolute Auto 0.1 K/mm3 (0-0.3); Eosinophils Percent Auto 1.9 % (0-4.4); Hematocrit 46.4 % (37.0-47.0); Immature Granulocyte Absolute 0.01 K/mm3 (0.00-0.031); Immature Granulocyte Percent A 0.2 % (0-0.5); Lymphocytes Absolute Auto 1.84 K/mm3 (0.9-3.2); Lymphocytes Percent Auto 39.7 % (18.3-44.2); Mean Corpuscular HGB Conc 32.3 g/dl (32-36); Mean Corpuscular Hemoglobin 30.9 pg (26-34); Mean Corpuscular Volume 95.5 fl (80-100); Mean Platelet Volume 8.8 fl (7.4-10.4); Monocytes Absolute Auto 0.4 K/mm3 (0.1-0.6); Monocytes Percent Auto 9.1 % (2.6-8.5); Neutrophils Absolute Auto 2.2 K/mm3 (1.3-6.7); Neutrophils Percent Auto 48.5 % (45.5-73.1); Platelet Count Result 250 k/mm3 (150-375); Red Blood Count 4.86 M/mm3 (4.2-5.4); Red Cell Distribution Width 12.9 % (11.5-14.5); White Blood Count 4.6 K/mm3 (4.5-10.0)
[2024-01-20 08:24] LABS: Blood Urea Nitrogen 14 mg/dL (8-26); Carbon Dioxide 31 mmol/L (22-30); Chloride 103 mmol/L (98-109); Estimated Glomerular Filt Rate 56; Glucose 93 mg/dL (70-105); Ionized Calcium (POC) 1.22 mmol/L (1.11-1.31); Potassium 4.7 mmol/L (3.5-4.9); Sodium 140 mmol/L (138-146)
[2024-01-20 11:37] LABS: Alanine Aminotransferase 20 U/L (6-35); Albumin Level 4.3 g/dL (3.5-5.1); Alkaline Phosphatase 96 U/L (38-126); Anion Gap 10 mmol/L (4-12); Aspartate Amino Transferase 22 U/L (14-36); Bilirubin,Total 0.5 mg/dL (0.2-1.3); Blood Urea Nitrogen 15 mg/dL (7-17); Calcium 9.7 mg/dL (8.4-10.2); Carbon Dioxide 29 mmol/L (22-30); Chloride 100 mmol/L (98-107); Estimated Glomerular Filt Rate > 60; Glucose 92 mg/dL (65-110); Potassium 4.8 mmol/L (3.4-5.0); Sodium 139 mmol/L (137-145)
== END 2024-01-20 08:06 | disposition home or self-care (01) ==
PROVIDERS: PCP Family Medicine; Visit Provider Internal Medicine Hematology & Oncology
DX: D05.12 Intraductal carcinoma in situ of left breast (principal)
CPT/HCPCS: 36415; 80047; 80053; 85025

== ENCOUNTER 2024-09-17 07:43 | Outpatient (CLI) | payer MEDICARE, SELFPAY ==
--- NOTE | ~2024-09-17 | DEXA_ITS ---
Bone Density Report Name: MICHELLE MORRISON Age: 64 Sex: Female Ethnicity: White Date of : 1960 Indication: postmenopausal; screening for osteoporosis; cancer; Referring Provider: DWIGHT GARCIA Study: Bone densitometry was performed. Exam Date: September 17, 2024 Accession number: [id number] Bone Density: Region BMD T-score Z-score Classification AP Spine(L1-L4) 1.095 0.4 2.3 Normal Femoral Neck (Left) 0.888 0.3 1.9 Normal Total Hip (Left) 0.979 0.3 1.6 Normal Femoral Neck (Right) 0.944 0.9 2.4 Normal Total Hip (Right) 0.963 0.2 1.5 Normal Total Hip Mean 0.971 0.3 1.6 Normal World Health Organization criteria for BMD impression classify patients as: Normal (T-score at or above -1.0), Osteopenia (T-score between -1.0 and -2.5), or Osteoporosis (T-score at or below -2.5). 10-year Fracture Risk: FRAX not reported because: All T-scores for Spine Total, Hip Total, Femoral Neck at or above -1.0 Previous Exams: Region Exam Age BMD T-score BMD Change BMD Change Date g/cm2 vs Baseline vs Previous AP Spine (L1-L4) 09/17/2024 64 1.095 0.4 -0.098 (-8.2%) 0.012 (1.1%) 01/23/2022 61 1.083 0.3 -0.110 (-9.2%) -0.110 (-9.2%) 08/12/2012 52 1.193 1.3 Total Hip(Left) 09/17/2024 64 0.979 0.3 -0.040 (-4.0%) -0.003 (-0.3%) 01/23/2022 61 0.982 0.3 -0.037 (-3.6%) -0.052 (-5.0%) 03/24/2019 58 1.034 0.8 0.015 (1.5%) 0.034 (3.4%)# 08/23/2015 55 1.000 0.5 -0.019 (-1.9%) -0.019 (-1.9%) 08/12/2012 52 1.019 0.6 Total Hip(Right) 09/17/2024 64 0.963 0.2 -0.075 (-7.2%) -0.023 (-2.4%) 01/23/2022 61 0.986 0.4 -0.051 (-5.0%) -0.069 (-6.6%) 03/24/2019 58 1.056 0.9 0.018 (1.7%) 0.049 (4.9%)# 08/23/2015 55 1.006 0.5 -0.031 (-3.0%) -0.031 (-3.0%) 08/12/2012 52 1.038 0.8 *Denotes significance at 95% confidence level, LSC for AP Spine = 0.022 g/cm2, LSC for Total Hip = 0.027 g/cm2 # Denotes dissimilar scan types or analysis methods Clinical Information Provided by Patient: Has used the following medications: Vitamin D, Calcium Has the following medical conditions: Cancer Patient maximum height was 67 Menopause Age: 51 No regular weight bearing exercise Drinks caffeinated beverages Onset of menses at age 11 Number of children 1 Impression: The patient has normal bone mass. No significant bone loss was observed. Discussion: BONE DENSITY IS ABOVE THE MINIMUM DESIRABLE LEVEL AT ALL SKELETAL SITES TESTED. This patient?s bone mineral density is above the minimum desirable level (T-score -1.0 or better) at all sites measured. The patient should follow a healthful lifestyle (good nutrition with adequate calcium and vitamin D, and appropriate weight-bearing exercise). Follow-Up: Consider repeating this study in 5 years or sooner if there is some new clinical indication. Reported by: LEON on 09/17/2024 8:29:00 AM. Reviewed, dictated and finalized at location A.
--- NOTE | ~2024-09-17 | MM_ITS ---
EXAMINATION: MM screening xiao BI w kar HISTORY: Screening mammogram TECHNIQUE: Craniocaudal and mediolateral oblique 3-D tomosynthesis images were obtained and synthetic 2-D images were generated. CAD analysis was submitted and interpreted. COMPARISON: 09/10/2023, 09/04/2022, 08/22/2021, 08/11/2020 BREAST PARENCHYMAL COMPOSITION:Not Dense. There are scattered areas of fibroglandular density. FINDINGS: Stable benign calcifications and biopsy clip in the left breast. No suspicious mass, calcif ication, or architectural distortion are identified in either breast to suggest malignancy. There has been no suspicious interval change. IMPRESSION: No mammographic evidence of malignancy. Recommend routine screening mammography in one year. BI-RADS Category 2: Benign finding(s). Reviewed, dictated and finalized at location .
--- OUTSIDE RECORDS SUMMARY | 2024-09-17 07:49 | XMS_ITS | Encounter Summary ---
Author Organization [facility] Address [address] [place] [address] Care Team Providers Care Lift Mechanic Name Role Phone Marcelino Reyes MD Primary Care Provider [phone] Encounter Details Date Type Department Care Team (Late Contact Info) Description 11/23/2017 Chart Note [facility] Radiation Therapy [address] [place] [address] [place] [address] [place] [address] Social History Tobacco Use Types Packs/Day Years Used Date Smoking Tobacco: Never Smokeless Tobacco: Never Alcohol Use Standard Drinks/Week Comments Yes 0 (1 standard drink = 0.6 oz pur e alcohol) Ocassionally Comments No Sex and Gender Information Value Date Recorded Sex Assigned at Not on file Legal Sex Female 2:55 AM 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 Gender Identity Not on file Sexual Orientation Not on file documented as of this encounter Plan of Treatment Upcoming Encounters Date Type Department Care Team (Late Contact Info) Description 09/24/2024 10:15 AM CDT Office Visit [facility] Oncology and Hematology - [place] [address] [facility] [address] [place] [address] Pierce Good MD [address] [facility] [address] [place] [address] documented as of this encounter Visit Diagnoses Not on filedocumented in this encounter Care Teams Lift Mechanic Relationship Specialty Start Date End Date Marcelino Reyes MD PCP - General Family Practice 09/10/22 documented as of this encounter
--- OUTSIDE RECORDS SUMMARY | 2024-09-17 07:50 | XMS_ITS | Clinical Summary ---
Author Organization [facility] Address [address] [place], [place] [address] [address] Care Team Providers Care Fresh Foods Technician Name Role Phone Marcelino Reyes MD Primary Care Provider [phone] Allergies Active Allergy Reactions Criticality Noted Date Comments Benzodiazepines Rash Low 09/15/2017 Lidocaine Rash Low 09/15/2017 Prochlorperazine Rash Low 09/15/2017 Vancomycin Rash Low 09/15/2017 Medications ALPRAZolam (XANAX) 0.25 mg tablet Take 0.25 mg by mouth 3 times daily as needed . 0 8 Active atorvastatin (LIPITOR) 20 mg tablet Take 20 mg by mouth daily at bedtime . 5 8 Active divalproex (DEPAKOTE ER) 500 mg Extended Release 24 hour tablet Take 500 mg by mouth daily at bedtime . 5 8 Active imipramine HCl (TOFRANIL) 50 mg tablet Take 50 mg by mouth daily at bedtime . 4 8 Active SUMAtriptan (IMITREX) 100 mg tablet Take 100 mg by mouth 1 time daily as needed . 5 8 Active naproxen (NAPROSYN) 500 mg tablet Take 500 mg by mouth 2 times daily as needed . Active cholecalcifero l, Vitamin D3, (VITAMIN D3) 2,000 unit Tablet Take 2,000 Units by mouth daily . Active cyclobenzaprin e (FLEXERIL) 10 mg tablet Take 10 mg by mouth 3 times daily as needed for Spasm. Active methylPREDNISo lone (MEDROL DOSPACK) 4 mg Tablets, Dose Pack Take 4 mg by mouth see administration instructions. Active anastrozole (ARIMIDEX) 1 mg tabletIndicati ons:Ductal carcinoma in situ (DCIS) of left breast,Estroge n receptor positive status (ER+),Lymphede ma of breast TAKE 1 TABLET BY MOUTH EVERY DAY 90 Tablet 2 4 Active Active Problems Problem Noted Date Diagnosed Date Aromatase inhibitor use 08/03/2018 Muscle spasm 04/26/2018 History of external beam radiation therapy 02/01 Lymphedema of breast 11/29/2017 Ductal carcinoma in situ (DCIS) of left breast 0 09/22/2017 Estrogen receptor positive status (ER+) 09/23/19 18 Resolved Problems Problem Noted Date Diagnosed Date Resolved Date Lymphatic channel disorder, 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 08/03/2018 Mammographic microcalcification 09/15/2017 08/03/2018 Encounters Date Type Department Care Team Description 07/25/2024 External Device Data [facility] ABSTRACTION Provider, Abstract 07/14/2024 External Device Data [facility] ABSTRACTION Provider, Abstract 07/13/2024 External Device Data [facility] ABSTRACTION Provider, Abstract 07/11/2024 External Device Data [facility] ABSTRACTION Provider, Abstract 07/11/2024 External Device Data ST[facility] ABSTRACTION Provider, Abstract 06/27/2024 External Device Data STL ABSTRACTION Provider, Abstract from Last 3 Months Family History Medical History Relation Name Comments Heart Disease Father Ovarian Cancer Mother Heart Disease Sister Relation Name Status Comments Brother Alive Father Mother Sister Social History Tobacco Use Types Packs/Day Years Used Date Smoking Tobacco: Never Smokeless Tobacco: Never Tobacco Cessation:Counseling Given: Not Answered Alcohol Use Standard Drinks/Week Comments Yes 0 (1 standard drink = 0.6 oz pur e alcohol) Ocassionally Comments No Sex and Gender Information Value Date Recorded Sex Assigned at Not on file Legal Sex Female 2:55 AM 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 DEFENSE DIRECTOR Gender Identity Not on file Sexual Orientation Not on file Last Filed Vital Signs Vital Sign Reading Time Taken Comments Blood Pressure 134/86 01/20/2024 8:30 AM CDT Pulse 96 01/20/2024 8:27 AM CDT Temperature 36.5 C (97.7 F) 01/20/2024 8:27 AM CDT Respiratory Rate 16 01/20/2024 8:27 AM CDT Oxygen Saturation 94% 01/20/2024 8:27 AM CDT Inhaled Oxygen Concentration - - Weight 83.5 kg (184 lb) 01/20/2024 8:27 AM CDT Height 168.9 cm (5' 6.5 ) 02/19/2022 11:02 AM CD T Body Mass Index 29.25 02/19/2022 11:02 AM CDT Plan of Treatment Upcoming Encounters Date Type Department Care Team (Late st Contact Info) Description 09/24/2024 10:15 AM CDT Office Visit [facility] Oncology and Hematology - [place] [address] [facility] [address] [place] [address] Pierce Good MD [address] [facility] [address] [place] [address] Health Maintenance Due Date Last Done Comments Pre-Diabetes and Diabetes Screening 1960 DTAP/TDAP/TD VACCINES (1 - Tdap) 1977 COLORECTAL SCREENING 2003 Colorectal Cancer Screening 2003 FIT-DNA Q 3 years 2003 FIT/FOBT Q 1 year 2003 Flex Sig/CT Colonography Q 5 years 2003 PNEUMOCOCCAL VACCINE 50+ YEA RS (1 of 1 - PCV) 2008 ZOSTER VACCINE (1 of 2) 2008 INFLUENZA VACCINE (#1) 2023 OSTEOPOROSIS SCREENING 03/24/2024 03/24/2019 BREAST CANCER SCREENING 09/09/2024 09/10/19 24, 08/11/2020, 08/14/2019, Additional history exists RSV VACCINE (60+ or ) (1 - 1-dose 75+ series) 2033 Procedures Procedure Name Priority Date/Time Associated Diagnosis Comments MAMMO SCREENING BILAT Routine 09/10/2023 11:36 AM CDT XR DEXA BONE DENSITY AXIAL 1 OR MORE SITES Routine 03/24/2019 Osteoporosis, unspecified osteoporosis type, unspecified pathological fracture presence from Last 3 Months or Most Recently Relevant to Health Maintenance Results * MAMMO SCREENING BILAT (09/10/2023 11:36 AM CDT) Anatomical Region Laterality Modality Breast Bilateral Mammography Pierce Good MD MAMMO ORDERABLES Final Result * XR DEXA BONE DENSITY AXIAL 1 OR MORE SITES (03/24/2019) Anatomical Region Laterality Modality Other Pierce Good MD DIAGNOSTIC IMAGING ORDERABLES F inal Result from Last 3 Months or Most Recently Relevant to Health Maintenance Insurance [employer] O MCR Care Teams Fresh Foods Technician Relationship Specialty Start Date End Date Marcelino Reyes MD PCP - General Family Practice 09/10/22
--- OUTSIDE RECORDS SUMMARY | 2024-09-17 07:50 | XMS_ITS | Clinical Summary ---
Author Organization [facility] Address [address] [place] [address] Care Team Providers Care Backup Administrator Name Role Phone Kp Prince Primary Care Provider [phone] Source Comments [facility],non-owned Affiliates and Associated Physician Practices is amultiple site organization consisting of ambulatory clinics and hospital sitesin [place], [place], [place] and [place]. This disclosure is being madepursuant to the Care Everywhere program and may not contain all information available regarding this patient. Last updated 18.[facility] [employer] Social History Tobacco Use Types Packs/Day Years Used Date Smoking Tobacco: Never Assessed Comments Unknown Sex and Gender Information Value Date Recorded Sex Assigned at Not on file Legal Sex Female 9:00 AM CDT Gender Identity Not on file Sexual Orientation Not on file Plan of Treatment Health Maintenance Due Date Last Done Comments BONE DENSITY TESTING 1960 COLOGUARD (AGES 45-75) - COL ON CA SCREENING 1960 COLON MONITORING 1960 COLONOSCOPY - COLON CA SCREENING 1960 CT COLONOGRAPHY - COLON CA SCREENING 1960 Colorectal Cancer Screening 1960 FIT - COLON CA SCREENING 1958 FLEX SIG - COLON CA SCREENING 1958 LIPID TESTING 1960 MAMMOGRAM 1960 HEPATITIS C SCREENING 05/09/1976 DTAP/TDAP/TD VACCINES (1 - Tdap) 1977 PNEUMOCOCCAL VACCINE 50+ (1 of 1 - PCV) 2008 ZOSTER VACCINE (1 of 2) 2008 COVID-19 VACCINE (2023-2 5 season) 2024 DEPRESSION SCREENING 05/09/2024 INFLUENZA VACCINE (Season Ended) 2025 Respiratory Syncytial Virus (RSV) Vaccine Pt: or over 60 yrs (1 - 1-dose 75+ series) 2033 HEPATITIS B VACCINE Aged Out No longe r eligible based on patient's age to complete this topic HIB VACCINE Aged Out No longer eligi ble based on patient's age to complete this topic HPV VACCINE Aged Out No longer eligi ble based on patient's age to complete this topic MENINGOCOCCAL (Group B) VACC INE SHARED DECISION-MAKING Aged Out No longer eligibl e based on patient's age to complete this topic MENINGOCOCCAL GROUPS A/C/Y/W VACCINE Aged Out No longer eligible b ased on patient's age to complete this topic Insurance LINK [employer] Care Teams Backup Administrator Relationship Specialty Start Date End Date Kp Prince DO [address] [place] [phone] PCP - General 11/24/21
--- OUTSIDE RECORDS SUMMARY | 2024-09-17 07:50 | XMS_ITS | Encounter Summary ---
Author Organization [facility] Address [address] [place] [address] Care Team Providers Care Roll Forming Machine Operator Name Role Phone Marcelino Reyes MD Primary Care Provider [phone] Encounter Details Date Type Department Care Team (Latest Contact Info) Description 06/13/1998 Inpatient Historical HIS PATIENT IN A BED Thomas León MD [address] [place] [address] Major depressive disorder, single episode, moderate (CMS/HCC) (Primary Dx) Social History Tobacco Use Types Packs/Day Years Used Date Smoking Tobacco: Never Assessed Comments Unknown Sex and Gender Information Value Date Recorded Sex Assigned at Not on file 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 Gender Identity Not on file Sexual Orientation Not on file documented as of this encounter Plan of Treatment Upcoming Encounters Date Type Department Care Team (Late st Contact Info) Description 09/24/2024 10:15 AM CDT Office Visit [facility] Oncology and Hematology - Daniel [address] [facility] [address] [place] [address] Pierce Good MD [address] [place] [address] documented as of this encounter Visit Diagnoses Diagnosis Major depressive disorder, single episode, moderate (CMS/HCC)- Primary Major depressive disorder, single episode, moderate documented in this encounter Care Teams Roll Forming Machine Operator Relationship Specialty Start Date End Date Marcelino Reyes MD PCP - General Family Practice 09/10/22 documented as of this encounter
== END 2024-09-17 07:44 | disposition home or self-care (01) ==
LOC: ANHIMG 07:48
PROVIDERS: PCP Family Medicine; Visit Provider Internal Medicine Hematology & Oncology
DX: Z12.31 Encounter for screening mammogram for malignant neoplasm of breast (principal); M85.89 Other specified disorders of bone density and structure, multiple sites
CPT/HCPCS: 77063; 77067; 77080

== ENCOUNTER 2024-09-24 09:36 | Outpatient (CLI) | payer MEDICARE, SELFPAY ==
[2024-09-24 09:48] LABS: Basophils Percent Auto 0.6 % (0.2-1.2); Eosinophils Absolute Auto 0.1 K/mm3 (0-0.3); Eosinophils Percent Auto 1.5 % (0-4.4); Hematocrit 44.6 % (37.0-47.0); Hemoglobin 14.6 g/dL (12.0-15.0); Immature Granulocyte Absolute 0.01 K/mm3 (0.00-0.031); Immature Granulocyte Percent A 0.2 % (0-0.5); Lymphocytes Absolute Auto 2.05 K/mm3 (0.9-3.2); Lymphocytes Percent Auto 39.5 % (18.3-44.2); Mean Corpuscular HGB Conc 32.7 g/dl (32-36); Mean Corpuscular Hemoglobin 31.5 pg (26-34); Mean Corpuscular Volume 96.1 fl (80-100); Mean Platelet Volume 9.1 fl (7.4-10.4); Monocytes Absolute Auto 0.6 K/mm3 (0.1-0.6); Neutrophils Absolute Auto 2.5 K/mm3 (1.3-6.7); Neutrophils Percent Auto 47.2 % (45.5-73.1); Platelet Count Result 240 k/mm3 (150-375); Red Blood Count 4.64 M/mm3 (4.2-5.4); Red Cell Distribution Width 13.1 % (11.5-14.5); White Blood Count 5.2 K/mm3 (4.5-10.0)
[2024-09-24 09:52] LABS: Blood Urea Nitrogen 19 mg/dL (8-26); Carbon Dioxide 26 mmol/L (22-30); Chloride 106 mmol/L (98-109); Estimated Glomerular Filt Rate 50; Glucose 79 mg/dL (70-105); Ionized Calcium (POC) 1.24 mmol/L (1.11-1.31); Potassium 4.7 mmol/L (3.5-4.9); Sodium 143 mmol/L (138-146)
--- OUTSIDE RECORDS SUMMARY | 2024-09-24 10:02 | XMS_ITS | Clinical Summary ---
Author Organization [facility] Address [address] [place] [address] Care Team Providers Care Maori Physiotherapist Name Role Phone Kp Prince Primary Care Provider [phone] Source Comments [facility],non-owned Affiliates and Associated Physician Practices is amultiple site organization consisting of ambulatory clinics and hospital sitesin [place], [place], [place] and [place]. This disclosure is being madepursuant to the Care Everywhere program and may not contain all information available regarding this patient. Last updated 18.[facility] Social History Tobacco Use Types Packs/Day Years [...] age to complete this topic Insurance LINK [employer] Care Teams Maori Physiotherapist Relationship Specialty Start Date End Date Kp Prince DO [address] [place] [phone] PCP - General 11/24/21
--- OUTSIDE RECORDS SUMMARY | 2024-09-24 10:02 | XMS_ITS | Clinical Summary ---
Author Organization [facility] Address [address] [place], [place] [address] [address] Care Team Providers Care Pulp Beater Name Role Phone Marcelino Reyes MD Primary Care Provider [phone] Allergies Active Allergy Reactions Criticality Noted Date [...] Encounters Date Type Department Care Team Description 09/20/2024 Orders Only [facility] Oncology and Hematology [facility] [address] [place] [address] Pierce Good MD 09/17/2024 Orders Only [facility] Oncology and Hematology Daniel [address] [place] [address] Pierce Good MD 07/25/2024 External Device Data ST[facility] ABSTRACTION Provider, [...] on file 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 Gender Identity Not on file Sexual Orientation [...] Description 09/24/2024 10:15 AM CDT Office Visit [facility] Oncology and Hematology [facility] [address] [facility] [address] [place] [address] Pierce Good MD [address] [facility] [address] [place] [address] Arrived Health Maintenance Due Date Last Done Comments [...] VACCINE (#1) 2023 OSTEOPOROSIS SCREENING 03/24/2024 03/24/2019 [place] Preventative Visit/Annual Wellness Visit 05/09/2024 BREAST CANCER SCREENING 09/17/2025 09/18/19 25, 09/10/2023, 08/11/2020, Additional history exists RSV VACCINE (60+ or ) (1 - 1-dose 75+ series) 2033 Procedures Procedure Name Priority Date/Time Associated Diagnosis Comments MAMMO SCREENING BILAT Routine 09/17/2024 3:02 PM CDT NM BONE DENSITY Routine 09/17/2024 9:23 AM CDT XR DEXA BONE DENSITY AXIAL 1 OR MORE SITES Routine 03/24/2019 Osteoporosis, unspecified osteoporosis type, unspecified pathological fracture presence from Last 3 Months or Most Recently Relevant to Health Maintenance Results * MAMMO SCREENING BILAT (09/17/2024 3:02 PM CDT) Anatomical Region Laterality Modality Breast Bilateral Mammography Pierce Good MD MAMMO ORDERABLES Final Result * NM BONE DENSITY (09/17/2024 9:23 AM CDT) Anatomical Region Laterality Modality Nuclear Medicine Pierce Good MD NM ORDERABLES Final Result * XR DEXA BONE DENSITY AXIAL 1 OR MORE SITES (03/24/2019) Anatomical Region Laterality Modality Other Pierce Good MD DIAGNOSTIC IMAGING ORDERABLES F inal Result from Last 3 Months or Most Recently Relevant to Health Maintenance Insurance [facility] Care Teams Pulp Beater Relationship Specialty Start Date End Date Marcelino Reyes MD PCP - General Family Practice 09/10/22
--- OUTSIDE RECORDS SUMMARY | 2024-09-24 10:02 | XMS_ITS | Encounter Summary ---
Author Organization [facility] Address [address] [place] [address] Care Team Providers Care Whiskey Regauger Name Role Phone Marcelino Reyes MD Primary Care Provider [phone] Encounter Details Date Type Department Care Team (Latest Contact Info) Description 06/13/1998 Inpatient Historical HIS PATIENT IN A BED Thomas León MD [address] [facility] [address] [place] [address] Major depressive disorder, single episode, moderate (CMS/HCC) (Primary Dx) Social History Tobacco Use Types Packs/Day Years Used Date Smoking Tobacco: Never Assessed Comments Unknown Sex and Gender Information Value Date Recorded Sex Assigned at Not on file 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 Gender Identity Not on file Sexual Orientation Not on file documented as of this encounter Plan of Treatment Upcoming Encounters Date Type Department Care Team (Late st Contact Info) Description 09/24/2024 10:15 AM CDT Office Visit [facility] Oncology and Hematology - Daniel [address] [facility] [address] [place] [address] Pierce Good MD [address] [facility] [address] [place] [address] Arrived documented as of this encounter Visit Diagnoses Diagnosis Major depressive disorder, single episode, moderate (CMS/HCC)- Primary Major depressive disorder, single episode, moderate documented in this encounter Care Teams Whiskey Regauger Relationship Specialty Start Date End Date Marcelino Reyes MD PCP - General Family Practice 09/10/22 documented as of this encounter
--- OUTSIDE RECORDS SUMMARY | 2024-09-24 10:02 | XMS_ITS | Encounter Summary ---
Author Organization [facility] Address [address] [place] [address] Care Team Providers Care French Translator Name Role Phone Marcelino Reyes MD Primary Care Provider [phone] Encounter Details Date Type Department Care Team (Late Contact Info) Description 11/23/2017 Chart Note [facility] Radiation Therapy [address] [place] [address] [place] [address] [place] [address] Social History Tobacco Use Types Packs/Day Years Used Date Smoking Tobacco: Never Smokeless Tobacco: Never Alcohol Use Standard Drinks/Week Comments Yes 0 (1 standard drink = 0.6 oz pur e alcohol) Ocassionally Comments No Sex and Gender Information Value Date Recorded Sex Assigned at Not on file 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 Oncology and Hematology - Daniel [address] [facility] [address] [place] [address] Pierce Good MD [address] [facility] [address] [place] [address] Arrived documented as of this encounter Visit Diagnoses Not on filedocumented in this encounter Care Teams French Translator Relationship Specialty Start Date End Date Marcelino Reyes MD PCP - General Family Practice 09/10/22 documented as of this encounter
--- OUTSIDE RECORDS SUMMARY | 2024-09-24 10:02 | XMS_ITS | Encounter Summary ---
Author Organization [facility] [email or web address] Address [address] [place] [address] Care Team Providers Care Logistics Team Leader Name Role Phone Marcelino Reyes MD Primary Care Provider [phone] Encounter Details Date Type Department Care Team ([facility] Contact Info) Description 09/20/2024 Orders Only [facility] Oncology and Hematology Daniel [address] [place] [address] Pierce Good MD [facility] [address] [place] [address] Social History Tobacco Use Types Packs/Day Years Used Date Smoking Tobacco: Never Smokeless Tobacco: Never Alcohol Use Standard Drinks/Week Comments Yes 0 (1 standard drink = 0.6 oz pur e alcohol) Ocassionally Comments No Sex and Gender Information Value Date Recorded Sex Assigned at Not on file 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 Gender Identity Not on file Sexual Orientation Not on file documented as of this encounter Plan of Treatment Upcoming Encounters Date Type Department Care Team (Late Contact Info) Description 09/24/2024 10:15 AM CDT Office Visit [facility] Oncology and Hematology [address] [place] [address] Pierce Good MD [facility] [address] [place] [address] Arrived documented as of this encounter Procedures Procedure Name Priority Date/Time Associated Diagnosis Comments NM BONE DENSITY Routine 09/17/2024 9:23 AM CDT documented in this encounter Results * NM BONE DENSITY (09/17/2024 9:23 AM CDT) Anatomical Region Laterality Modality Nuclear Medicine us Pierce Good MD NM ORDERABLES Final Result documented in this encounter Visit Diagnoses Not on filedocumented in this encounter Care Teams Logistics Team Leader Relationship Specialty Start Date End Date Marcelino Reyes MD PCP - General Family Practice 09/10/22 documented as of this encounter
== END 2024-09-24 09:37 | disposition home or self-care (01) ==
LOC: ANHLAB 09:37
PROVIDERS: PCP Family Medicine; Visit Provider Internal Medicine Hematology & Oncology
DX: D05.12 Intraductal carcinoma in situ of left breast (principal)
CPT/HCPCS: 36415; 80047; 85025